=== PATIENT | male | born 1990 | race Caucasian/White ===

== ENCOUNTER 2016-11-15 18:35 | Emergency (ER) | payer OTHER, SELFPAY ==
[2016-11-15] MEDS ORDERED: Sodium Chloride 0.9% 1,000 ML ONE ×2 (18:50→21:02)
[2016-11-15] MEDS ORDERED: Ondansetron HCl/PF 4 MG/2 ML Vial ONE (18:51)
[2016-11-15 19:28] LABS: #Basophils 0.1 thou/uL (0.0-0.2); #Eosinphils 0.2 thou/uL (0.0-0.7); #Lymphocytes 3.5 thou/uL (1.20-3.40); #Monocytes 0.9 thou/uL (0.11-0.59); #Neutrophils 6.1 thou/uL (1.40-6.50); %Basophils 1.3 % (0.0-1.0); %Eosinophils 1.5 % (0.0-10.0); %Lymphocytes 32.8 % (21.0-51.0); %Monocytes 8.4 % (0.0-10.0); %Neutrophils 56.1 % (42.0-75.0); Hemoglobin 18.9 g/dL (14.0-18.0); Mean Corpuscular HGB CONC 33.8 g/dL (32.0-36.0); Mean Corpuscular Hemoglobin 28.9 pg (27.0-31.0); Mean Corpuscular Volume 85.3 fl (80.0-94.0); Mean Platelet Volume 9.8 fL (7.4-10.4); Platelet Count 181 thou/uL (130-400); RBC Distribution Width 11.8 % (11.5-14.5); Red Blood Cell (RBC) Count 6.56 mill/uL (4.70-6.10); White Blood Cell (WBC) Count 10.8 thou/uL (4.8-10.8)
[2016-11-15 19:50] LABS: PTT 24.7 SEC (22.9-36.1); Prothrombin Time 13.7 SEC (12.0-14.7)
[2016-11-15 19:54] LABS: ALT (SGPT) 30 U/L (8-55); AST (SGOT) 21 U/L (5-34); Albumin 4.1 g/dL (3.5-5.0); Alkaline Phosphatase 45 U/L (40-150); Amylase 33 U/L (25-125); Anion Gap 18 mmol/L (10-20); Bilirubin, Total 0.5 mg/dL (0.2-1.2); CK (CPK) 153 U/L (30-200); Calc. Creatinine Clearance 0 mL/min (70-130); Calcium 8.7 mg/dL (7.8-10.44); Carbon Dioxide 18 mmol/L (22-29); Chloride 105 mmol/L (98-107); Estimated GFR-MDRD 81; Globulin 2.8 g/dL (2.4-3.5); Glucose 143 mg/dL (70-105); Lipase 16 U/L (8-78); Potassium 4.2 mmol/L (3.5-5.1); Protein, Total 6.9 g/dL (6.0-8.3); Sodium 137 mmol/L (136-145)
[2016-11-15 19:55] LABS: CKMB 0.6 ng/mL (0-6.6); Troponin I Less than 0.010 ng/mL (< 0.028)
[2016-11-15 19:59] LABS: BUN (Urea Nitrogen) 17 mg/dL (8.9-20.6)
--- NOTE | 2016-11-15 20:21 | RAD ---
CHEST ONE VIEW ABDOMEN TWO VIEWS 11/15/16 HISTORY: 26-year-old male with abdominal pain and blood in stool. No significant acute process in the chest. There is no free intraperitoneal air. There is some air a nd fluid within the transverse colon and some mildly dilated small bowel loops primarily in the righ t lower quadrant and mid abdomen, nonspecific, but could possibly represent some focal ileus. IMPRESSION: Some nonspecific borderline sized small bowel loops in the right lower quadrant and lower abdomen. S ome air and fluid in the transverse colon without evidence of free air or overt obstruction. If clin ical concern, additional imaging with followup CT scan might be of benefit. POS: [facility]
[2016-11-15] MEDS ORDERED: Pantoprazole 40 MG VIAL ONE (21:02)
[2016-11-15] MEDS ORDERED: Sodium Chloride 0.9% 100 ML ONE (21:02)
== END 2016-11-15 22:10 | disposition short-term general hospital (02) ==
LOC: NAV ERS 18:35
DX: K92.2 Gastrointestinal hemorrhage, unspecified (principal); I95.1 Orthostatic hypotension
CPT/HCPCS: 74022; 80053; 82150; 82550; 82553; 83690; 84484; 85025; 85610; 85730; 93005; 96361; 96365; 96375; C9113; J2405; J7050